=== PATIENT | female | born 1985 | race Caucasian/White ===

== ENCOUNTER 2023-08-26 10:00 | Outpatient (RCR) | payer MEDICAID, SELFPAY | END 2023-08-26 10:05 | disposition home or self-care (01) | LOC: PT 10:00 | PROVIDERS: PCP Nurse Practitioner Obstetrics & Gynecology; Visit Provider Physical Medicine & Rehabilitation | DX: T07.XXXA Unspecified multiple injuries, initial encounter (principal); V29.108 Other motorcycle passenger injured in collision with unspecified motor vehicles in nontraffic accident | CPT/HCPCS: 97110; 97112; 97116; 97140; 97163; 97164; 97530; 97760 ==

== ENCOUNTER 2023-09-21 15:00 | Outpatient (RCR) | payer MEDICAID, SELFPAY | END 2023-09-21 15:05 | disposition home or self-care (01) | LOC: OT 15:00 | PROVIDERS: PCP Nurse Practitioner Obstetrics & Gynecology; Visit Provider Physical Medicine & Rehabilitation | DX: T07.XXXA Unspecified multiple injuries, initial encounter (principal); V29.108 Other motorcycle passenger injured in collision with unspecified motor vehicles in nontraffic accident | CPT/HCPCS: 97010; 97014; 97035; 97110; 97140; 97164; 97165; 97530; G0283 ==